=== PATIENT | male | born 1985 | race Caucasian/White ===

== ENCOUNTER 2018-12-12 20:11 | Emergency (ER) | payer OTHER ==
[~2018-12-12] VITALS: Ht 172.7 cm; Wt 100.2 kg
[2018-12-12 20:17] VITALS: Ht 172.7 cm; Wt 100.2 kg
[2018-12-12 21:08] VITALS: BP 136/86
== END 2018-12-12 21:08 | disposition home or self-care (01) ==
LOC: ED 20:11
DX: B02.29 Other postherpetic nervous system involvement (principal)
CPT/HCPCS: J1885